=== PATIENT | male | born 1995 | race Caucasian/White ===

== ENCOUNTER 2020-06-28 14:51 | Emergency (ER) | payer OTHER ==
[~2020-06-28] VITALS: Ht 180.3 cm; Wt 110.7 kg
[2020-06-28] MEDS ORDERED: TYLENOL325 M1 PO (16:04)
[2020-06-28] MEDS ORDERED: NAPROSYN500 MG PO (16:04)
[2020-06-28 16:14] VITALS: BP 140/99
== END 2020-06-28 16:14 | disposition home or self-care (01) ==
LOC: ER 14:51
DX: S06.0X0A Concussion without loss of consciousness, initial encounter (principal); S00.83XA Contusion of other part of head, initial encounter; F17.210 Nicotine dependence, cigarettes, uncomplicated; W51.XXXA Accidental striking against or bumped into by another person, initial encounter; Y93.89 Activity, other specified; Y92.89 Other specified places as the place of occurrence of the external cause; Y99.8 Other external cause status